=== PATIENT | female | born 1970 | race Caucasian/White ===

== ENCOUNTER 2018-07-07 05:30 | Day surgery (SDC) | payer OTHER ==
[2018-07-01 08:45] LABS: HEMATOCRIT 38.6 % (36.0-47.0); HEMOGLOBIN 13.3 g/dL (12.0-15.5); MEAN CORPUSCULAR HEMOGLOBIN 31.6 pg (27.0-33.4); MEAN CORPUSCULAR HGB CONC 34.6 g/dL (32.0-36.0); MEAN CORPUSCULAR VOLUME 91 fl (80-97); PLATELET COUNT 234 10^3/uL (150-450); RED BLOOD COUNT 4.22 10^6/uL (3.72-5.28); WHITE BLOOD COUNT 5.9 10^3/uL (4.0-10.5)
[2018-07-01 08:49] LABS: APPEARANCE,URINE CLEAR; BILIRUBIN,URINE NEGATIVE (NEGATIVE); COLOR,URINE YELLOW; GLUCOSE, URINE NEGATIVE (NEGATIVE); KETONES,URINE NEGATIVE (NEGATIVE); LEUKOCYTE ESTERASE,URINE NEGATIVE (NEGATIVE); NITRITE,URINE NEGATIVE (NEGATIVE); PROTEIN,URINE NEGATIVE (NEGATIVE); URINE SPECIFIC GRAVITY 1.014; UROBILINOGEN,URINE NEGATIVE mg/dL (<2.0)
--- NOTE | 2018-07-01 08:51 | RADIOLOGY REPORT (SQ) ---
EXAM DESCRIPTION: CHEST PA/LATERAL COMPLETED DATE/TIME: 07/01/2018 8:43 am REASON FOR STUDY: PRE-OP COMPARISON: None. EXAM PARAMETERS: NUMBER OF VIEWS: two views TECHNIQUE: Digital Frontal and Lateral radiographic views of the chest acquired. RADIATION DOSE: NA LIMITATIONS: none FINDINGS: LUNGS AND PLEURA: No opacities, masses or pneumothorax. No pleural effusion. MEDIASTINUM AND HILAR STRUCTURES: No masses or contour abnormalities. HEART AND VASCULAR STRUCTURES: Heart normal size. No evidence for failure. BONES: No acute findings. HARDWARE: None in the chest. OTHER: No other significant finding. IMPRESSION: NO SIGNIFICANT RADIOGRAPHIC FINDING IN THE CHEST. TECHNICAL DOCUMENTATION: JOB ID: [id number] [employer]- All Rights Reserved Reading location - IP/workstation name: [email or web address]
[2018-07-01 09:08] LABS: ANION GAP 10 (5-19); BLOOD UREA NITROGEN 10 mg/dL (7-20); CALCIUM 9.5 mg/dL (8.4-10.2); CARBON DIOXIDE 28 mmol/L (22-30); CHLORIDE 106 mmol/L (98-107); GLUCOSE 80 mg/dL (75-110); POTASSIUM 3.8 mmol/L (3.6-5.0); SODIUM 143.7 mmol/L (137-145)
--- NOTE | 2018-07-01 15:48 | EKG REPORT ---
SEVERITY:- NORMAL ECG - SINUS RHYTHM : Confirmed by: Soraida Wong MD 01-Jul-2018 15:47:21
[~2018-07-07 05:30] MED LIST: CEFAZOLIN 2 GM/D5W RTU 2 GM/50 ML RTUPB IV PRN; LACTATED RINGERS 1000 ML IV PRN; LIDOCAINE 0.5% INJ-PF (5 MG/ML) 50 ML SDV SUBCUT PRN
[2018-07-07] MEDS ORDERED: FENTANYL CITRATE INJ/PF 100 MCG/2 ML AMPUL ONE (06:20)
[2018-07-07] MEDS ORDERED: LIDOCAINE 2% INJ-PF (20 MG/ML) 10 ML AMPUL ONE (06:20)
[2018-07-07] MEDS ORDERED: ACETAMINOPHEN 1,000 MG/100 ML RTUPB IV ONE (06:21)
[2018-07-07] MEDS ORDERED: MIDAZOLAM 2 MG/2 ML INJ ONE (06:21)
[2018-07-07] MEDS ORDERED: PROPOFOL INJ 200 MG/20 ML VIAL IV ONE (06:21)
[2018-07-07] MEDS ORDERED: DEXAMETHASONE SOD PHOSPHATE INJ 4 MG/1 ML VIAL ONE (06:21)
[2018-07-07] MEDS ORDERED: ONDANSETRON HCL INJ/PF 4 MG/2 ML SDV ONE (06:22)
[2018-07-07] MEDS ORDERED: CEFAZOLIN 2 GM/D5W RTU 2 GM/50 ML RTUPB IV ONE (06:26)
[2018-07-07] MEDS ORDERED: BUPIVACAINE HCL 0.5 % INJ/PF 30 ML SDV ONE (06:31)
[2018-07-07] MEDS ORDERED: EPINEPHRINE INJ/PF 1 MG/1 ML AMPULE ONE (07:13)
[2018-07-07] MEDS ORDERED: EPHEDRINE SULFATE INJ 50 MG/1 ML AMPULE ONE (07:53)
[2018-07-07] MEDS ORDERED: ONDANSETRON HCL INJ/PF 4 MG/2 ML SDV IV PRN ×2 (08:57→09:39)
[2018-07-07] MEDS ORDERED: MORPHINE SULFATE 10 MG/ML INJ IV PRN ×2 (08:57→09:39)
[2018-07-07] MEDS ORDERED: DIPHENHYDRAMINE HCL 50 MG/ML VIAL IV PRN (08:57)
[2018-07-07] MEDS ORDERED: FENTANYL CITRATE INJ/PF 100 MCG/2 ML AMPUL IV PRN ×3 (08:57)
[2018-07-07] MEDS ORDERED: PROMETHAZINE HCL INJ 25 MG/1 ML VIAL IV PRN ×2 (08:57)
[2018-07-07] MEDS ORDERED: MEPERIDINE HCL/PF INJ 25 MG/1 ML DISP.SYRIN IV PRN (08:57)
[2018-07-07] MEDS ORDERED: OXYCODONE-ACETAMINOPHEN 5-325 MG TABLET PO PRN (09:39)
--- NOTE | 2018-07-07 09:41 | Discharge Summary ---
Discharge Summary (SDC) - Discharge Final Diagnosis: Left shoulder subacromial bursitis, anterior labral tear, AC joint DJD Date of Surgery: 07/07/18 Discharge Date: 07/07/18 Condition: Good Treatment or Instructions: Schedule Follow Up w/ Dr. Domenic Bauman @ [facility] to be seen in 10-14 days or as scheduled [place]: [place]: [place]: May remove dressing on postop day #3, keep incision covered and dry. Cryocuff to shoulder May begin pendulum exercises along w/ hand, wrist and elbow range of motion 4x per day or as tolerated. May remove sling for hygiene purposes otherwise continue it at all times. Stool softener of choice when on pain medication. Prescriptions: Ketorolac Tromethamine [Toradol 10 mg Tablet] 10 mg PO Q8HP PRN #12 tablet PRN Reason: Oxycodone HCl/Acetaminophen [Percocet 5-325 mg Tablet] 1 tab PO Q6 PRN #25 tablet PRN Reason: Discharge Diet: As Tolerated Respiratory Treatments at Home: Deep Breathing/Coughing Discharge Activity: No Lifting Over 10 Pounds, No Lifting/Push/Pulling Report the Following to Your Physician Immediately: Fever over 101 Degrees, Unusual Bleeding, Redness, Swelling, Warmth, Increased Soreness
[2018-07-07] MEDS: FENTANYL CITRATE INJ/PF 100 MCG/2 ML AMPUL ONE ×2 (09:52→09:57)
[2018-07-07] MEDS ORDERED: ROPIVACAINE HCL 0.5% INJ/PF (5 MG/1 ML) 30 ML SDV ONE (09:54)
[2018-07-07] MEDS ORDERED: LIDOCAINE 2% INJ (20 MG/ML) 20 ML MDV ONE (09:54)
[2018-07-07] MEDS ORDERED: LIDOCAINE 2%/EPINEPHRINE INJ 20 ML VIAL ONE (09:54)
--- NOTE | 2018-07-07 09:57 | Operative Report ---
Operative Report DATE OF SURGERY: 07/07/18 PREOPERATIVE DIAGNOSIS: Left shoulder anterior labral tear, AC joint DJD, impingement syndrome/subacromial bursitis POSTOPERATIVE DIAGNOSIS: Same, glenohumeral synovitis OPERATION: Left shoulder arthroscopy with debridement with partial synovectomy of the glenohumeral joint, acromioplasty, subacromial bursectomy, distal clavicle excision, open subpectoralis biceps tenodesis SURGEON: BELA TORRES ANESTHESIA: GA COMPLICATIONS: None ESTIMATED BLOOD LOSS: Minimal PROCEDURE: Indication for above procedure: 47-year-old female with long-standing history of left shoulder discomfort. She attempted injections, physical therapy and anti-inflammatories. Ultimately had an MRI in outside facility demonstrating anterior labral tear with advanced degenerative changes of the AC joint which coincided with patient's clinical examination. Given the fact she had failed conservative management decision was made to proceed with operative intervention. Risks and benefits were explained patient verbalized understanding consented for the procedure. Procedure In Detail: Patient was seen and evaluated in the preoperative holding area. The LEFT upper extremity was initialized and marked. Patient received 2g of Ancef IV for bacterial prophylaxis. Patient was taken back to the operative room where transferred to the operative table and placed under general anesthesia. Once they were adequately anesthetized patient was placed in the beachchair position with nonoperative right upper extremity bilateral lower extremities carefully padded. Cervical spine was placed in a neutral position all bony prominences padded.. A surgical team debriefing was performed ensuring all instrumentation was available, the surgical procedure was discussed with possible concerns reviewed. The upper extremity was prepped with ChloraPrep and draped in a sterile fashion. Posterior portal was established. Arthroscope introduced into the glenohumeral joint. Via triangulation and anterior portal established. Diagnostic arthroscopy of the glenohumeral joint demonstrated significant synovitis along the anterior aspect of the joint. Mild fraying of the anterior labrum with fraying and partial detachment of the superior labrum. This area was debrided. The biceps tendon released for later tenodesis. Inspection of the subscapularis demonstrate no evidence of disruption. The undersurface of the rotator cuff demonstrated fraying but no evidence of full-thickness tear. A 18- gauge needle placed to the partial-thickness tear and marked with a PDS for later retrieval in the subacromial space. There was small chondral defect along the central aspect of the glenoid otherwise no evidence of degenerative changes. The undersurface of the rotator cuff was debrided with the arthroscopic shaver and a partial synovectomy performed. Arthroscope was then introduced in the subacromial space. Via triangulation lateral portal established. Patient had evidence of moderate subacromial bursitis and thus a subacromial bursectomy was performed. The coracoacromial ligament was released but not excised. There was evidence of a downsloping acromion with degeneration of the distal clavicle causing underlying impingement. Anterior portal was established along with a Neviser's portal. The AC joint was debrided and 8 mm of distal clavicle excised. There is no evidence of residual impingement with superior elevation/forward flexion or abduction. The rotator cuff was then inspected. The PDS suture retrieved and there is no evidence of full-thickness tear or thinning at the level of the partial thickness tear. Acromioplasty was performed excising the anterior spur from the acromion. There is no evidence of residual impingement of the AC joint or acromion with range of motion after acromioplasty. Attention then turned to subpectoral biceps tenodesis. Longitudinal skin incision was made along the inferior third of the pectoralis major. Blunt dissection was performed identifying the inferior border of the pectoralis major. Any peripheral vasculature was carefully coagulated. I then identified the tenotomized long head of the biceps which was retrieved and brought out the wound. The tendon was then secured 2 centimeters distal to the musculotendinous junction with a #2 fiber loop and the remaining diseased portion of the biceps was excised. The Arthrex biceps tenodesis button was then secured to my biceps tendon. Under direct visualization I then cleared an area along the anterior aspect of the humerus and drilled unicortically. The button was then placed into the unicortical hole and the biceps tendon was shuttled to the anterior cortex of the humerus. I then checked stability of the button confirming maximal fixation. Utilizing the free needle one limb of the remaining FiberWire was secured to the biceps providing further fixation. The elbow was then placed through range of motion to ensure appropriate tension of the biceps with flexion and extension. The wound was then copiously irrigated with normal saline. Any peripheral vasculature was carefully coagulated with Bovie cautery. Skin was closed a running subcuticular 4-0 Monocryl suture reinforced with Dermabond and Steri-Strips. 10 cc of 0.5% lidocaine without epinephrine was injected for postoperative pain control. Portal holes were closed with interrupted 3-0 nylon suture. Sponge counts, instrument counts, needle counts counts were correct. Patient was then awoken from anesthesia. Transferred from the operating room table to the operating room stretcher. There was no intraoperative complications patient tolerated procedure well stable to PACU. Postoperative plan: Patient will follow-up in 2 weeks for wound check. We will begin physical therapy 4 weeks postoperatively as per subpectoral biceps tenodesis protocol
[2018-07-07] MEDS ORDERED: KETOROLAC TROMETHAMINE INJ/PF 30 MG/1 ML SDV ONE (10:47)
[2018-07-07] MEDS ORDERED: SUCCINYLCHOLINE CHLORIDE INJ 200 MG/10 ML VIAL ONE (10:57)
[2018-07-07 13:13] VITALS: BP 139/74
== END 2018-07-07 13:00 | disposition home or self-care (01) ==
LOC: OROUT 05:30
PROVIDERS: ATTEND Orthopaedic Surgery
DX: M75.42 Impingement syndrome of left shoulder (principal); M65.812 Other synovitis and tenosynovitis, left shoulder; M75.52 Bursitis of left shoulder; M19.012 Primary osteoarthritis, left shoulder; S46.012A Strain of muscle(s) and tendon(s) of the rotator cuff of left shoulder, initial encounter; S43.432A Superior glenoid labrum lesion of left shoulder, initial encounter; X58.XXXA Exposure to other specified factors, initial encounter; M19.90 Unspecified osteoarthritis, unspecified site; Z79.899 Other long term (current) drug therapy
CPT/HCPCS: 93005; 36415; 85027; 81025; 80048; 81001; 71046; 93010; 29824; 24340; 29827; 29826; L3650; C1713 ×2; J2795; J2250; J3490 ×5; J1100; J0171; J3010; J1885; J0330; J2405; J2704; J0690; J0131; 1630